=== PATIENT | female | born 2000 | race Caucasian/White ===

== ENCOUNTER 2022-03-03 14:05 | Outpatient (CLI) | payer MEDICAID ==
--- NOTE | 2022-03-03 15:49 | XRay Report ---
EXAM: Shunt series INDICATION: SHUNT PLACEMENT CHECK COMPARISON: None FINDINGS: Right parietal ventriculostomy shunt tubing projects over the right hemithorax and right hemiabdomen. No breaks or kinking of the shunt tubing. Tubing terminates in the pelvis with no associated mass ef fect. Lungs are clear. No objective bowel gas pattern. IMPRESSION: No evidence of shunt complication. Signer Name: Yunior Vasquez DO Signed: 03/03/2022 3:44 PM Workstation Name: [id number]
== END 2022-03-03 14:06 | disposition home or self-care (01) ==
LOC: XRAY 14:05
PROVIDERS: ATTEND Neurological Surgery
DX: G80.9 Cerebral palsy, unspecified (principal); Q06.9 Congenital malformation of spinal cord, unspecified; G91.9 Hydrocephalus, unspecified; Z98.2 Presence of cerebrospinal fluid drainage device
CPT/HCPCS: 70250; 71045; 74018

== ENCOUNTER 2022-03-27 13:04 | Outpatient (CLI) | payer MEDICAID ==
--- NOTE | 2022-03-27 16:10 | Cat Scan Report ---
CT BRAIN: 03/27/2022 INDICATION / CLINICAL INFORMATION: SHUNT. COMPARISON: None available. FINDINGS: BRAIN/INTRACRANIAL STRUCTURES: Unenhanced CT images of the brain were obtained. No previous studies a re available for comparison. There is some beam hardening artifact arising skull base extending across the lower portion of the po sterior fossa. Patient has a right frontal shunt tube with its tip near the right side of the foramen of Monro. The right lateral ventricle is collapsed. The left lateral ventricle is more prominent, although with in normal limits of size. There is no evidence of hemorrhage or mass. There are no abnormal extra-axial fluid collections. EXTRACRANIAL STRUCTURES: Unremarkable. IMPRESSION: No evidence of acute abnormality. Collapsed right lateral ventricle. Comparison with prior studies necessary for full CT evaluation of the shunt status. All CT scans at this location are performed using dose reduction to ALARA by means of automated expos ure control. Signer Name: Jacob Patricia MD Signed: 03/27/2022 3:58 PM Workstation Name: [id number]
== END 2022-03-27 13:05 | disposition home or self-care (01) ==
LOC: CT 13:04
PROVIDERS: ATTEND Neurological Surgery
DX: G80.9 Cerebral palsy, unspecified (principal); G91.9 Hydrocephalus, unspecified
CPT/HCPCS: 70450